=== PATIENT | male | born 1940 | race Caucasian/White ===

== ENCOUNTER 2018-02-14 11:37 | Day surgery (SDC) | payer MEDICARE ==
--- NOTE | 2018-02-16 07:00 | Operative Note ---
DATE: 02/14/2018. PROCEDURE: Cardioversion. INDICATIONS: Persistent atrial fibrillation. OPERATING PHYSICIAN: Layla Mauro M.D. PRIMARY CARE PHYSICIAN: Andrés Abernathy M.D. DESCRIPTION OF PROCEDURE: Mr. Angulo was brought into the cardioversion room in a fasting state. Defibrillation pads were applied in the anteroposterior position. Anesthesia was administered, and synchronized direct current of 100 joules biphasic energy was utilized for cardioversion. This was successful on the first attempt. IMPRESSION: Successful direct current cardioversion with 100 joules of biphasic energy. JOB NUMBER: [id number] MTDD
== END 2018-02-14 14:36 | disposition home or self-care (01) ==
LOC: SUR 11:37
PROVIDERS: ATTEND Internal Medicine
DX: I48.1 Persistent atrial fibrillation (principal); I10 Essential (primary) hypertension; E78.00 Pure hypercholesterolemia, unspecified
CPT/HCPCS: 93005

== ENCOUNTER 2018-05-30 11:05 | Day surgery (SDC) | payer MEDICARE ==
[2018-05-30] MEDS ORDERED: LIDOCAINE 2% MDV (20MG/ML) 20ML VIAL IV ONE (11:06)
[2018-05-30] MEDS ORDERED: PROPOFOL 10 MG/ML VIAL IV ONE (11:06)
[2018-05-30 11:45] LABS: BASO % 0.2 % (0-6); EOS % 1.3 % (0-6); GRAN % 73.3 % (47-80); HEMATOCRIT 42.5 % (42.0-52.0); HEMOGLOBIN 14.5 gm/dl (14.0-18.0); LYMPH % 11.8 % (16-45); MEAN CORPUSCULAR HEMOGLOBIN 34.4 pg (27-33); MEAN CORPUSCULAR HGB CONC 34.1 g/dl (32-36); MEAN PLATELET VOLUME 10.4 fl (7.4-10.4); MONO % 13.4 % (0-9); PLATELET COUNT 190 K/uL (130-400); RED BLOOD COUNT 4.21 M/uL (4.40-5.70); RED CELL DISTRIBUTION WIDTH 12.8 % (11.5-14.5)
[2018-05-30 12:01] LABS: ALB/GLOB RATIO 1.4 (1.1-1.8); ALBUMIN 3.9 g/dL (4.0-5.0); ALKALINE PHOSPHATASE 90 U/L (40-129); ALT/SGPT 18 U/L (<41); AST/SGOT 23 U/L (10.0-50.0); BLOOD UREA NITROGEN 19 mg/dL (8-23); CREATININE 1.2 mg/dL (0.7-1.2); EST GLOMERULAR FILTRATION RATE > 60 mL/min; GLUCOSE,RANDOM 91 mg/dL (74-109); TOTAL PROTEIN 6.6 g/dL (6.6-8.7)
--- NOTE | 2018-06-02 06:08 | Operative Note ---
DATE: 05/30/2018. PROCEDURE: Cardioversion. INDICATIONS: Persistent atrial fibrillation. OPERATING PHYSICIAN: Layla Mauro M.D. PRIMARY CARE PHYSICIAN: Andrés Abernathy M.D. DESCRIPTION OF PROCEDURE: Mr. Angulo was brought into the cardioversion room in a fasting state. Defibrillation pads were applied in the anteroposterior position. Synchronized direct current of 100 joules was used for cardioversion. This was successful on the first attempt. Anesthesia was administered by the STRUCTURAL LAYOUT WORKER. IMPRESSION: Successful direct-current supported cardioversion with 100 joules of biphasic energy. JOB NUMBER: [id number] MTDD
== END 2018-05-30 14:10 | disposition home or self-care (01) ==
LOC: SUR 11:05
PROVIDERS: ATTEND Internal Medicine
DX: I48.1 Persistent atrial fibrillation (principal); I10 Essential (primary) hypertension; E78.00 Pure hypercholesterolemia, unspecified; I25.10 Atherosclerotic heart disease of native coronary artery without angina pectoris; G47.33 Obstructive sleep apnea (adult) (pediatric)
CPT/HCPCS: 80053; 85025; 93005

== ENCOUNTER → 2018-07-17 | Day surgery (SDC) | payer MEDICARE ==
[~2018-07-17] MED LIST: ACETAMINOPHEN 1,000 MG/100 ML BTL IV ONE; ATROPINE SULFATE 0.4 MG/ML 20ML IVP ONE; BUPIVACAINE 0.25% W/EPI MPF 30ML VIAL IVP ONE; BUPIVACAINE LIPOSOME 266MG/20ML VIAL IV ONE; EPHEDRINE SULFATE 50 MG/ML ML IV ONE; FAMOTIDINE 20MG TABLET PO ONE; HYDROMORPHONE HCL 2 MG/ML VIAL IV ONE; KETAMINE HCL 100MG/1ML VIAL INJ ONE; LIDOCAINE 2% MDV (20MG/ML) 20ML VIAL IV ONE; MECLIZINE 25 MG TABLET PO ONE; METOCLOPRAMIDE 10 MG TABLET PO ONE; PROPOFOL 10 MG/ML VIAL IV ONE; SEVOFLURANE 250 ML INH ONE
--- NOTE | 2018-07-18 07:30 | Operative Note ---
DATE OF SURGERY: 07/17/2018 Surgeon: Steven Callejas DO Referring physician: Andrés Abernathy MD, FACP PREOPERATIVE DIAGNOSIS: Recurrent pilonidal cyst. POSTOPERATIVE DIAGNOSIS: Recurrent pilonidal cyst. OPERATION: Pilonidal cystectomy. Anesthesia: General. 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 On exam, he had a fairly sizeable open track on the left. This did track midline. Therefore, we did discuss a pilonidal cystectomy versus observation. He decided due to the chronic issues of drainage he wanted this area taken care of. Therefore, the risks, benefits, and alternatives were discussed, the risks of bleeding, infection, prolonged wound. He understood this fully and consent was signed. All questions answered. PROCEDURE: He was taken to the operating room and placed in the supine position. General anesthesia was administered per the Department of Anesthesia. The patient rotated into prone esvin-knife position. His cleft was prepped and draped in the usual fashion. Using a probe, the external fistulous track on his skin was probed. This did head down deep below his coccyx. This area was then opened. A formal pilonidal cystectomy was then done, curving off to the left due to the fistulous track. Due to the inflammatory nature of the track, the decision was made to keep this wound open and we would pack this. Therefore, this area was then injected with approximately 20 mL of Exparel. The wound was then packed with iodoform gauze. Bandages were applied and he was taken to the recovery room in satisfactory condition. The size of the track was about 6 x 2 cm. He will undergo local wound care with his . I will see him back in about 2 weeks. [facility] CENTERAscencion
== END | disposition home or self-care (01) ==
LOC: SUR 09:18
PROVIDERS: ATTEND Surgery
DX: I48.91 Unspecified atrial fibrillation (principal); Z79.01 Long term (current) use of anticoagulants; I10 Essential (primary) hypertension; E78.00 Pure hypercholesterolemia, unspecified
CPT/HCPCS: 11771; 00300; J1170; C9290; J3490

== ENCOUNTER 2019-07-12 06:12 | Day surgery (SDC) | payer MEDICARE ==
[2019-07-12] MEDS ORDERED: LIDOCAINE 2% MDV (20MG/ML) 20ML VIAL IV ONE (06:13)
[2019-07-12] MEDS ORDERED: PROPOFOL 10 MG/ML VIAL IV ONE (06:13)
[2019-07-12] MEDS ORDERED: 0.9 % SODIUM CHLORIDE 1000ML 1,000 ML IV ONE ×2 (06:35→08:03)
[2019-07-12 06:46] LABS: ABSOLUTE NEUTROPHIL COUNT 6.25; BASO % 0.2 % (0-6); EOS % 1.7 % (0-6); GRAN % 66.7 % (47-80); HEMATOCRIT 40.8 % (42.0-52.0); HEMOGLOBIN 13.7 gm/dl (14.0-18.0); LYMPH % 19.2 % (16-45); MEAN CELL VOLUME 101.5 fl (81-97); MEAN CORPUSCULAR HGB CONC 33.6 g/dl (32-36); MEAN PLATELET VOLUME 10.6 fl (7.4-10.4); MONO % 12.2 % (0-9); PLATELET COUNT 176 K/uL (130-400); RED BLOOD COUNT 4.02 M/uL (4.40-5.70); RED CELL DISTRIBUTION WIDTH 12.5 % (11.5-14.5); WHITE BLOOD COUNT W/O DIFF 9.4 K/uL (4.2-12.2)
[2019-07-12 07:09] LABS: ALB/GLOB RATIO 1.3 (1.1-1.8); ALBUMIN 3.8 g/dL (4.0-5.0); BILIRUBIN,TOTAL 0.6 mg/dL (0.2-1.0); CREATININE 1.3 mg/dL (0.7-1.2); TOTAL PROTEIN 6.8 g/dL (6.6-8.7)
--- NOTE | 2019-07-12 09:17 | Operative Note ---
DATE OF PROCEDURE: 07/12/2019 INDICATION: Paroxysmal atrial fibrillation. SURGEON: Layla Mauro M.D. PROCEDURE: Mr. Angulo was brought to the Cardioversion Room in a fasting state. Defibrillation pads were applied in the anteroposterior position. Anesthesia was administered. A synchronized direct current of 200 joules biphasic energy was used for cardioversion. This was successful on the first attempt. IMPRESSION: SUCCESSFUL CARDIOVERSION WITH 200 JOULES OF BIPHASIC ENERGY. JOB NUMBER: [id number] MTDD
== END 2019-07-12 08:45 | disposition home or self-care (01) ==
LOC: SUR 06:12
PROVIDERS: ATTEND Internal Medicine
DX: I48.0 Paroxysmal atrial fibrillation (principal); Z79.01 Long term (current) use of anticoagulants; I10 Essential (primary) hypertension; E78.00 Pure hypercholesterolemia, unspecified; C61 Malignant neoplasm of prostate; I25.10 Atherosclerotic heart disease of native coronary artery without angina pectoris; G47.33 Obstructive sleep apnea (adult) (pediatric); Z95.5 Presence of coronary angioplasty implant and graft
CPT/HCPCS: 80053; 85025; 92960; 93005; J7030

== ENCOUNTER 2019-08-01 17:35 | Emergency (ER) | payer MEDICARE ==
--- NOTE | 2019-08-01 17:46 | Emergency Department Record ---
History of Present Illness - General Chief Complaint: Arrythmia/Palpitations Stated Complaint: AFIB Time Seen by Provider: 08/01/19 17:41 Source: Patient, EMS Mode of Arrival: EMS Limitations: No limitations - History of Present Illness Initial Comments: 78 yo male presents to ED for evaluation of a recurrence of his atrial fibrillation this afternoon. Patient reports intermittent exacerbations of atrial fibrillation resulting in periodic cardioversions. Patient denies difficulty in breathing of chest discomfort, denies fevers, chills, or recent i llness. Patient does however report that he "feels hot all over" and reports diffuse red rash to the body. Patient denies new medications, soaps, or detergents, and denies any recent medication changes. Patient does take Xarelto daily, is treated by Dr. Mauro. Complaint: Irregular heart beat -: Hour(s) Context: Occurred during rest Arrythmia History: Atrial fibrillation Associated Symptoms: Other (Rash) - Related Data Home Medications Medication Instructions Recorded Confirmed Last Taken Amiodarone HCl [Pacerone] 100 mg PO BID 08/01/19 08/01/19 1 Day Ago ~07/31/19 Atorvastatin Calcium [Lipitor] 20 mg PO DAILY 08/01/19 08/01/19 1 Day Ago ~07/31/19 Bicalutamide [Casodex] 50 mg PO DAILY 08/01/19 08/01/19 1 Day Ago ~07/31/19 Lisinopril 30 mg PO DAILY 08/01/19 08/01/19 1 Day Ago ~07/31/19 Rivaroxaban [Xarelto] 20 mg PO DAILY 08/01/19 08/01/19 1 Day Ago ~07/31/19 Allergies Allergy/AdvReac Type Severity Reaction Status Date / Time No Known Drug Allergies Allergy Verified 08/01/19 17:48 Review of Systems Constitutional: Denies: Chills, Fever, Malaise, Night sweats Eyes: Denies: Eye discharge, Eye pain ENT: Denies: Congestion, Ear pain, Epistaxis Respiratory: Denies: Cough, Dyspnea Cardiovascular: Denies: Chest pain, Dyspnea on exertion Endocrine: Denies: Fatigue, Heat or cold intolerance Gastrointestinal: Denies: Abdominal pain, Nausea, Vomiting Genitourinary: Denies: Incontinence, Retention Musculoskeletal: Denies: Arthralgia, Back pain Skin: Reports: Change in color, Rash. Denies: Bruising, Change in hair/nails Neurological: Denies: Abnormal gait, Confusion, Headache, Tingling, Tremors, Weakness Psychiatric: Denies: Anxiety Hematological/Lymphatic: Reports: Easy bleeding, Easy bruising. Denies: Anemia, Blood Clots Past Medical History - SOCIAL HISTORY Smoking Status: Never smoker Alcohol Use Comment: at least 2 beers a day - RESPIRATORY Hx Respiratory Disorders: Yes Hx Sleep Apnea: Yes Hx of CPAP: Yes (uses) - CARDIOVASCULAR Hx Cardio Disorders: Yes Hx Abnormal EKG: Yes Hx Cardiac Cath: Yes (03/12) Hx Hypotension: Yes (on meds) Hx Irregular Heartbeat: Yes (Paroxysmal atrial fib) Hx Coronary Artery Disease: Yes Hx Coronary Stent: Yes (Two bare metal in RCA 03/12 for significant stenosis) Comment:: Atherosclerotic heart disease; hyperlipidemia on Lipitor - NEURO Hx Neuro Disorders: No - GI Hx GI Disorders: No - Hx Genitourinary Disorders: Yes Hx Prostate Problems: Yes (prostate removed 1999) - ENDOCRINE Hx Endocrine Disorders: No - MUSCULOSKELETAL Hx Musculoskeletal Disorders: Yes Hx Arthritis: Yes (HANDS) - PSYCH Hx Psych Problems: No - HEMATOLOGY/ONCOLOGY Hx Hematology/Oncology Disorders: Yes Hx Bruising: Yes (ON XARELTO) Hx Cancer: Yes (prostate) Hx Chemotherapy: Yes (TAKES DAILY CASODEX) Family Medical History Family Hx Comment (NOT TO BE USED IN PLACE OF ITEMS BELOW): dads hx unknown Hx Dementia: Mother Hx Diabetes: Brother/Sister Hx Heart Disease: Brother/Sister Hx HTN: Mother, Brother/Sister Physical Exam - General General Appearance: Alert, Oriented x3, Cooperative, Mild distress Limitations: No limitations - Head Head exam: Atraumatic, Normocephalic, Normal inspection Head exam detail: negative: Abrasion, Contusion, Maxwell's sign, General tenderness, Hematoma, Laceration - Eye Eye exam: Normal appearance. negative: Conjunctival injection, Periorbital swelling, Periorbital tenderness, Scleral icterus - ENT Ear exam: negative: Auricular hematoma, Auricular trauma Nasal Exam: negative: Active bleeding, Discharge, Dried blood, Foreign body, Sinus tenderness Mouth exam: negative: Drooling, Laceration, Muffled voice, Tongue elevation - Neck Neck exam: Normal inspection. negative: Meningismus, Tenderness - Respiratory Respiratory exam: Normal lung sounds bilaterally. negative: Respiratory distress, Rhonchi, Stridor, Wheezes - Cardiovascular Cardiovascular Exam: Irregular rhythm, Tachycardia - GI/Abdominal GI/Abdominal exam: Soft. negative: Distended, Rebound, Rigid, Tenderness - Rectal Rectal exam: Deferred - exam: Deferred - Extremities Extremities exam: Normal inspection. negative: Pedal edema, Tenderness - Back Back exam: Reports: Rash noted. Denies: CVA tenderness (R), CVA tenderness (L) - Neurological Neurological exam: Alert, Normal gait, Oriented X3 - Psychiatric Psychiatric exam: Normal affect, Normal mood - Skin Skin exam: Erythema. negative: Abrasion Type of lesion: Rash Distribution of rash: Back, Chest Description of rash: Confluent Course - Reevaluation(s) Reevaluation #1: 08/01/19 17:53 EKG: Atrial fibrillation 100 Normal axis, irregular R-R intervals Nonspecific ST-T wave changes V4-V6 Reevaluation #2: 08/01/19 18:26 Laboratory studies were reviewed and appear grossly unremarkable for an acute process. Discussed admission with the patient for possible cardioversion in the morning, through shared decision making the patient is declining as he has an appointment with Dr. Mauro tomorrow at 11:30 AM. Patient is anticoagulated, rate controlled, and appears stable for discharge with follow-up tomorrow morning as scheduled. Medical Decision Making - Lab Data Result diagrams: 08/01/19 18:00 08/01/19 18:00 Disposition Disposition: Discharge Clinical Impression: Atrial fibrillation Qualifiers: Atrial fibrillation type: paroxysmal Qualified Code(s): I48.0 - Paroxysmal atrial fibrillation Disposition: Home, Self-Care Condition: (2) Stable Instructions: A-fib (Atrial Fibrillation) (ED) Additional Instructions: Return to ED if your symptoms worsen or if you have any concerns. Follow-up with Dr. Mauro tomorrow morning as scheduled. Forms: Patient Portal Access Time of Disposition: 18:36 Quality - Quality Measures Quality Measures: N/A - Blood Pressure Screening Does Patient Have Any of the Following: No Blood Pressure Classification: Normal BP Reading Systolic Measurement: 115 Diastolic Measurement: 78 Screening for High Blood Pressure: < Normal BP, F/U Not Required > [G8783]
[2019-08-01 18:07] LABS: ABSOLUTE NEUTROPHIL COUNT 6.66; BASO % 0.2 % (0-6); EOS % 1.1 % (0-6); GRAN % 66.1 % (47-80); HEMATOCRIT 43.2 % (42.0-52.0); HEMOGLOBIN 14.9 gm/dl (14.0-18.0); LYMPH % 22.6 % (16-45); MEAN CELL VOLUME 98.9 fl (81-97); MEAN CORPUSCULAR HGB CONC 34.5 g/dl (32-36); MEAN PLATELET VOLUME 10.5 fl (7.4-10.4); PLATELET COUNT 232 K/uL (130-400); RED BLOOD COUNT 4.37 M/uL (4.40-5.70); RED CELL DISTRIBUTION WIDTH 12.8 % (11.5-14.5); WHITE BLOOD COUNT W/O DIFF 10.1 K/uL (4.2-12.2)
[2019-08-01 18:17] LABS: BLOOD UREA NITROGEN 24 mg/dL (8-23); CREATININE 1.3 mg/dL (0.7-1.2); EST GLOMERULAR FILTRATION RATE 57 mL/min; TOTAL PROTEIN 6.7 g/dL (6.6-8.7)
[2019-08-01 18:19] LABS: GLUCOSE,RANDOM 136 mg/dL (74-109)
[2019-08-01 18:22] LABS: ALB/GLOB RATIO 1.5 (1.1-1.8); ALKALINE PHOSPHATASE 88 U/L (40-129); ALT/SGPT 13 U/L (<41); AST/SGOT 19 U/L (10.0-50.0)
== END 2019-08-01 18:59 | disposition home or self-care (01) ==
LOC: ER 17:35
DX: I48.0 Paroxysmal atrial fibrillation (principal); E78.5 Hyperlipidemia, unspecified; I25.10 Atherosclerotic heart disease of native coronary artery without angina pectoris
CPT/HCPCS: 80053; 84484; 85025; 93005; 93010; 93041; 99284

== ENCOUNTER → 2019-08-13 | Day surgery (SDC) | payer MEDICARE ==
[~2019-08-13] MED LIST changes: +0.9 % SODIUM CHLORIDE 1000ML 1,000 ML IV ONE; -ACETAMINOPHEN 1,000 MG/100 ML BTL IV ONE; -ATROPINE SULFATE 0.4 MG/ML 20ML IVP ONE; -BUPIVACAINE 0.25% W/EPI MPF 30ML VIAL IVP ONE; -BUPIVACAINE LIPOSOME 266MG/20ML VIAL IV ONE; -EPHEDRINE SULFATE 50 MG/ML ML IV ONE; -FAMOTIDINE 20MG TABLET PO ONE; -HYDROMORPHONE HCL 2 MG/ML VIAL IV ONE; -KETAMINE HCL 100MG/1ML VIAL INJ ONE; -MECLIZINE 25 MG TABLET PO ONE; -METOCLOPRAMIDE 10 MG TABLET PO ONE; -SEVOFLURANE 250 ML INH ONE
--- NOTE | 2019-08-15 09:55 | Operative Note ---
DATE OF PROCEDURE: 08/13/2019 INDICATION: Paroxysmal atrial fibrillation. SURGEON: Layla Mauro M.D. PROCEDURE: Mr. Angluo was brought into the Cardioversion Room in fasting state. The defibrillation pads were applied in the anteroposterior position. Anesthesia was administered. A synchronized direct current of 200 joules biphasic energy was used which was successful on the first attempt. IMPRESSION: SUCCESSFUL DIRECT CURRENT CARDIOVERSION WITH 200 JOULES OF BIPHASIC ENERGY. JOB NUMBER: [id number] MTDD
== END | disposition home or self-care (01) ==
LOC: SUR 06:15
PROVIDERS: ATTEND Internal Medicine
DX: I48.0 Paroxysmal atrial fibrillation (principal); Z79.01 Long term (current) use of anticoagulants; C61 Malignant neoplasm of prostate; I10 Essential (primary) hypertension; E78.00 Pure hypercholesterolemia, unspecified; I25.10 Atherosclerotic heart disease of native coronary artery without angina pectoris; G47.33 Obstructive sleep apnea (adult) (pediatric); Z95.5 Presence of coronary angioplasty implant and graft
CPT/HCPCS: 92960; 93005; J7030